=== PATIENT | female | born 1990 | race Caucasian/White ===

== ENCOUNTER 2019-07-02 14:41 | Emergency (ER) | payer SELFPAY ==
[~2019-07-02] VITALS: Ht 156.2 cm; Wt 75.0 kg
[~2019-07-02 14:41] MED LIST: PREN-385 PO; [UNRECOGNIZED DRUG - CODE] PO
[2019-07-02 14:52] VITALS: BP 122/89
--- NOTE | 2019-07-02 15:03 | NUR ---
29 Y/O F C/C COUGH X2 DAYS; FEVER X1 DAY. PER PT NOT UP TO DATE WITH FLU SHOT; NO ONE SICK AT HOME. ALLERGIES SHELLFISH. HAS TAKEN OTC MEDICATIONS WITH NO RELIEF. PT NKA. HX ASTHMA. RX ALBUTEROL PRN. NO N/V/D. PER PT NOTICED COUGHING BLOOD THIS AM. SIDE RAIL X1. FAMILY AT BEDSIDE.
--- NOTE | 2019-07-02 15:08 | NUR ---
Ricarda STEPHENSON AT BEDSIDE
[2019-07-02 15:25] VITALS: BP 122/89
--- NOTE | 2019-07-02 15:25 | NUR ---
Patient discharged with v/s stable. Written and verbal after care instructions given and explained. Patient alert, oriented and verbalized understanding of instructions. Ambulatory with steady gait. All questions addressed prior to discharge. ID band removed. Patient advised to follow up with PMD. Rx of IBUPROFEN, TESSALON, VENTOLIN given. Patient educated on indication of medication including possible reaction and side effects. Opportunity to ask questions provided and answered.
== END 2019-07-02 15:25 | disposition home or self-care (01) ==
LOC: MED 14:41
DX: J06.9 Acute upper respiratory infection, unspecified (principal); R03.0 Elevated blood-pressure reading, without diagnosis of hypertension; J45.909 Unspecified asthma, uncomplicated; Z79.899 Other long term (current) drug therapy; Z91.013 Allergy to seafood
CPT/HCPCS: 99283

== ENCOUNTER 2019-12-18 12:44 | Emergency (ER) | payer MEDICAID ==
[~2019-12-18] VITALS: Ht 157.5 cm; Wt 82.1 kg
[2019-12-18 12:50] VITALS: BP 137/86
[2019-12-18 13:29] VITALS: BP 128/81
== END 2019-12-18 13:30 | disposition home or self-care (01) ==
LOC: MED 12:44
DX: M79.602 Pain in left arm (principal); R20.0 Anesthesia of skin; F17.200 Nicotine dependence, unspecified, uncomplicated; F12.90 Cannabis use, unspecified, uncomplicated; J45.909 Unspecified asthma, uncomplicated; Z79.899 Other long term (current) drug therapy; Z98.890 Other specified postprocedural states; Z91.013 Allergy to seafood
CPT/HCPCS: 99283

== ENCOUNTER 2020-06-22 08:52 | Emergency (ER) | payer MEDICAID ==
[~2020-06-22] VITALS: Ht 157.5 cm; Wt 76.2 kg
[2020-06-22 08:59] VITALS: BP 142/88
--- NOTE | 2020-06-22 09:35 | NUR ---
OBTAINED CONSENT FOR TDAP
--- NOTE | 2020-06-22 09:44 | NUR ---
DR. TORRES EXAMINING PT
[2020-06-22] MEDS ORDERED: LIDOCAINE MPF 1% 10 MG/ML VIAL INJ ONE (09:55)
--- NOTE | 2020-06-22 10:30 | NUR ---
PATIENT AMBULATED TO ER [facility]
--- NOTE | 2020-06-22 10:37 | NUR ---
YANET TORRES REPAIRING LAC
[2020-06-22 10:46] VITALS: BP 142/88
--- NOTE | 2020-06-22 10:46 | NUR ---
Patient discharged with v/s stable. Written and verbal after care instructions given and explained. Patient verbalized understanding. Ambulatory with steady gait. All questions addressed prior to discharge. Advised to follow up with PMD.
== END 2020-06-22 10:46 | disposition home or self-care (01) ==
LOC: MED 08:52
DX: S61.512A Laceration without foreign body of left wrist, initial encounter (principal); J45.909 Unspecified asthma, uncomplicated; Z91.013 Allergy to seafood; Z79.899 Other long term (current) drug therapy; W27.2XXA Contact with scissors, initial encounter; Y93.89 Activity, other specified; Y92.89 Other specified places as the place of occurrence of the external cause; Y99.8 Other external cause status
CPT/HCPCS: 12001; 90471; 90715; 99283; J2001

== ENCOUNTER 2020-07-01 18:07 | Emergency (ER) | payer MEDICAID ==
[~2020-07-01] VITALS: Ht 157.5 cm; Wt 76.2 kg
[2020-07-01 18:10] VITALS: BP 132/72
--- NOTE | 2020-07-01 18:10 | NUR ---
PT FOLLOWING UP TO HAVE STITCHES REMOVED THAT WERE PLACED ON 06/22 TO LEFT WRIST. REDNESS AND SWELLING NOTED TO SITE, PATIENT STATED THE SWELLING DEVELOPED A FEW DAYS AGO. DENIES ANY DRAINAGE. NO PMH
[2020-07-01] MEDS: BACITRACIN OINT 500 UNITS/GM PKT TP ONE (18:32)
--- NOTE | 2020-07-01 18:34 | NUR ---
Patient discharged with v/s stable. Written and verbal after care instructions given and explained. Patient alert, oriented and verbalized understanding of instructions. Ambulatory with steady gait. All questions addressed prior to discharge. ID band removed. Patient advised to follow up with PMD. Rx of MUPIROCIN given. Patient educated on indication of medication including possible reaction and side effects. Opportunity to ask questions provided and answered.
== END 2020-07-01 18:34 | disposition home or self-care (01) ==
LOC: MED 18:07
DX: S61.512D Laceration without foreign body of left wrist, subsequent encounter (principal); J45.909 Unspecified asthma, uncomplicated; Z79.899 Other long term (current) drug therapy; Z91.013 Allergy to seafood; X58.XXXD Exposure to other specified factors, subsequent encounter
CPT/HCPCS: 99282

== ENCOUNTER 2021-08-17 20:39 | Emergency (ER) | payer MEDICAID ==
[~2021-08-17] VITALS: Ht 157.5 cm; Wt 79.4 kg
[2021-08-17 20:45] VITALS: BP 147/82
--- NOTE | 2021-08-17 20:45 | NUR ---
TO BED AMBULATORY
--- NOTE | 2021-08-17 21:10 | NUR ---
Dr. Constantino examining patient.
[2021-08-17] MEDS ORDERED: CIPR500T4 PO (21:19)
[2021-08-17] MEDS ORDERED: IBUP-2213 PO (21:19)
--- NOTE | 2021-08-17 21:21 | NUR ---
31 Y/O FEMALE BIB SELF, C/O LEFT ANT FLANK PAIN X1 HR. PATIENT PRESENTS TO ED WITH PAIN. PT STATES PALPATION TO AREA CAUSES WHAT FEELS LIKE "A SHOCK." PT DESCRIBES PAIN INTERMITTENT, SHARP, WORSE WITH PALPATION AND 7/10 PAIN. DENIES N/V/D; NO DYSURIA OR HEMATURIA, SKIN IS PINK/WARM/DRY; AAOX4 WITH EVEN AND STEADY GAIT; LUNGS CLEAR BL; HR EVEN AND REGULAR; PT DENIES ANY FEVER, CP, SOB, OR COUGH AT THIS TIME; PATIENT STATES PAIN OF 7/10 AT THIS TIME; VSS; PATIENT POSITIONED FOR COMFORT; HOB ELEVATED; BEDRAILS UP X2; BED DOWN. ER MD MADE AWARE OF PT STATUS. NO PMH ALLERGIES TO SHELLFISH DENIES MEDS PREVIOUS SURG TO RIGHT ARMPIT TO REMOVE EXCESS BREAST TISSUE
--- NOTE | 2021-08-17 21:50 | NUR ---
Patient discharged with v/s stable. Written and verbal after care instructions given and explained. Patient alert, oriented and verbalized understanding of instructions. Ambulatory with steady gait. All questions addressed prior to discharge. ID band removed. Patient advised to follow up with PMD. Rx of Ciprofloxacin HCL and Ibuprofen given. Patient educated on indication of medication including possible reaction and side effects. Opportunity to ask questions provided and answered. VSS, A/OX4, AMBULATORY, UNLABORED BREATHING, AND CALM DEMEANOR.
[2021-08-17 21:51] VITALS: BP 147/82
== END 2021-08-17 21:50 | disposition home or self-care (01) ==
LOC: MED 20:39
DX: N39.0 Urinary tract infection, site not specified (principal); J45.909 Unspecified asthma, uncomplicated; Z79.1 Long term (current) use of non-steroidal anti-inflammatories (NSAID); Z79.2 Long term (current) use of antibiotics; Z79.899 Other long term (current) drug therapy; Z91.013 Allergy to seafood
CPT/HCPCS: 81002; 81025; 99283

== ENCOUNTER 2023-04-01 11:00 | Emergency (ER) | payer MEDICAID ==
[~2023-04-01] VITALS: Ht 157.5 cm; Wt 75.3 kg
[~2023-04-01 11:00] MED LIST changes: +CIPR500T4 PO; +IBUP-2213 PO
[2023-04-01 11:07] VITALS: BP 123/84; PULSE 99; RESP 14; TEMP 98.1; O2SAT 97
[2023-04-01] MEDS ORDERED: KETOROLAC 30 MG/ML VIAL IVP ONE (11:35)
[2023-04-01 11:37] VITALS: O2SAT 97
[2023-04-01] MEDS ORDERED: NACL 0.9% 1,000 ML IV ONE (11:45)
[2023-04-01 11:59] LABS: BASOPHILS # (AUTO) 0.1 K/uL (0.00-0.22); BASOPHILS % (AUTO) 0.9 % (0.0-2.0); EOSINOPHILS # (AUTO) 0.3 K/uL (0-0.4); EOSINOPHILS % (AUTO) 4.8 % (0.0-4.0); HEMATOCRIT 43.5 % (36-48); HEMOGLOBIN 14.8 g/dL (12.0-16.0); LYMPHOCYTES # (AUTO) 1.5 K/uL (2.5-16.5); LYMPHOCYTES % (AUTO) 21.1 % (20.5-51.1); MEAN CORPUSCULAR HEMOGLOBIN 31 pg (27-31); MEAN CORPUSCULAR HGB CONC 34 g/dL (33-37); MEAN CORPUSCULAR VOLUME 89.6 fL (80-94); MONOCYTES # (AUTO) 0.4 K/uL (0.8-1.0); MONOCYTES % (AUTO) 6.2 % (1.7-9.3); NEUTROPHILS # (AUTO) 4.8 K/uL (1.8-7.7); PLATELET COUNT (AUTO) 295 K/uL (140-450); RED BLOOD CELL COUNT(AUTO) 4.86 MIL/uL (4.20-5.40); RED CELL DISTRIBUTION WIDTH 12.7 % (11.6-13.7); WHITE BLOOD COUNT (AUTO) 7.2 K/uL (4.8-10.8)
[2023-04-01 12:29] LABS: APPEARANCE,URINE CLEAR (CLEAR); BILIRUBIN,URINE NEGATIVE (NEGATIVE); BLOOD, URINE TRACE-I (NEGATIVE); COLOR,URINE YELLOW (YELLOW); LEUKOCYTE ESTERASE ,URINE NEGATIVE (NEGATIVE); NITRITE, URINE NEGATIVE (NEGATIVE); PROTEIN,URINE NEGATIVE (NEGATIVE); UGLUCOSE NEGATIVE (NEGATIVE); UROBILINOGEN,URINE 0.2 EU/dL (0.2 - 1)
[2023-04-01 12:39] LABS: ANION GAP 13.8 (8-16); CALCIUM 9.1 mg/dL (8.5-10.1); CARBON DIOXIDE 24.8 mmol/L (21-32); CREATININE 0.8 mg/dL (0.6-1.3); POTASSIUM 3.6 mmol/L (3.5-5.1); TOTAL BILIRUBIN 0.7 mg/dL (0.0-1.0)
[2023-04-01 13:34] LABS: RBC,URINE 0-5 /HPF (0-5); WBC,URINE 0-5 /HPF (0-5)
[2023-04-01 13:35] LABS: BACTERIA,URINE FEW /HPF (None Seen); MUCUS,URINE None Seen /LPF (None Seen); SQUAMOUS EPITHELIAL CELL,UR 4-10 (MOD) /LPF (0-3 (FEW)); TRICHOMONAS,URINE None Seen /HPF (None Seen); WHITE BLOOD CELL CASTS,URINE None Seen /LPF (None Seen); YEAST,URINE None Seen /HPF (None Seen)
== END 2023-04-01 14:29 | disposition home or self-care (01) ==
LOC: MED 11:00
DX: N83.202 Unspecified ovarian cyst, left side (principal); J45.909 Unspecified asthma, uncomplicated; Z79.899 Other long term (current) drug therapy; Z79.1 Long term (current) use of non-steroidal anti-inflammatories (NSAID); Z79.2 Long term (current) use of antibiotics; Z91.013 Allergy to seafood
CPT/HCPCS: 36415; 74176; 80053; 81001; 81025; 83690; 85025; 96361; 96374; 99285; J1885; J7030

== ENCOUNTER 2023-04-15 19:55 | Emergency (ER) | payer MEDICAID ==
[~2023-04-15] VITALS: Ht 157.5 cm; Wt 72.1 kg
[2023-04-15 20:59] VITALS: BP 137/93; PULSE 104; RESP 16; TEMP 97.1; O2SAT 99
[2023-04-15 21:59] LABS: APPEARANCE,URINE CLEAR (CLEAR); BILIRUBIN,URINE 1+ (NEGATIVE); BLOOD, URINE NEGATIVE (NEGATIVE); COLOR,URINE YELLOW (YELLOW); LEUKOCYTE ESTERASE ,URINE NEGATIVE (NEGATIVE); NITRITE, URINE NEGATIVE (NEGATIVE); PROTEIN,URINE NEGATIVE (NEGATIVE); UGLUCOSE NEGATIVE (NEGATIVE)
[2023-04-15 22:05] LABS: BASOPHILS # (AUTO) 0.1 K/uL (0.00-0.22); BASOPHILS % (AUTO) 0.8 % (0.0-2.0); EOSINOPHILS # (AUTO) 0.3 K/uL (0-0.4); EOSINOPHILS % (AUTO) 3.2 % (0.0-4.0); HEMATOCRIT 41.5 % (36-48); HEMOGLOBIN 14.1 g/dL (12.0-16.0); LYMPHOCYTES % (AUTO) 24.3 % (20.5-51.1); MEAN CORPUSCULAR HEMOGLOBIN 31 pg (27-31); MEAN CORPUSCULAR HGB CONC 34 g/dL (33-37); MEAN CORPUSCULAR VOLUME 89.6 fL (80-94); MONOCYTES # (AUTO) 0.8 K/uL (0.8-1.0); MONOCYTES % (AUTO) 9.3 % (1.7-9.3); NEUTROPHILS # (AUTO) 5.1 K/uL (1.8-7.7); NEUTROPHILS % (AUTO) 62.4 % (42.2-75.2); PLATELET COUNT (AUTO) 333 K/uL (140-450); RED BLOOD CELL COUNT(AUTO) 4.63 MIL/uL (4.20-5.40); RED CELL DISTRIBUTION WIDTH 12.7 % (11.6-13.7); WHITE BLOOD COUNT (AUTO) 8.2 K/uL (4.8-10.8)
[2023-04-15 22:11] LABS: ICTOTEST NEGATIVE (NEGATIVE)
[2023-04-15 22:43] LABS: ALBUMIN 3.7 g/dL (3.4-5.0); ANION GAP 11.1 (8-16); CALCIUM 8.9 mg/dL (8.5-10.1); CARBON DIOXIDE 27.4 mmol/L (21-32); CREATININE 0.8 mg/dL (0.6-1.3); POTASSIUM 3.5 mmol/L (3.5-5.1); TOTAL BILIRUBIN 0.4 mg/dL (0.0-1.0); TOTAL PROTEIN, SERUM 7.7 g/dL (6.4-8.2)
[2023-04-15 23:03] VITALS: BP 128/74; PULSE 87; RESP 16; TEMP 97; O2SAT 99
== END 2023-04-15 23:04 | disposition home or self-care (01) ==
LOC: MED 19:55
DX: N64.4 Mastodynia (principal); M54.9 Dorsalgia, unspecified; J45.909 Unspecified asthma, uncomplicated; Z98.890 Other specified postprocedural states; Z79.899 Other long term (current) drug therapy; Z91.013 Allergy to seafood
CPT/HCPCS: 36415; 71045; 80053; 81003; 81025; 83690; 85025; 99284

== ENCOUNTER 2023-05-21 14:01 | Emergency (ER) | payer MEDICAID ==
[~2023-05-21] VITALS: Ht 157.5 cm; Wt 79.4 kg
[2023-05-21 14:08] VITALS: BP 137/86; PULSE 92; RESP 15; TEMP 97.9; O2SAT 99
[2023-05-21 14:10] VITALS: O2SAT 99
[2023-05-21] MEDS ORDERED: diphenhydrAMINE 50 MG/ML VIAL IVP ONE ×2 (15:05→16:50)
[2023-05-21] MEDS ORDERED: METOCLOPRAMIDE 10 MG/2 ML INJ VIAL IVP ONE ×2 (15:05→16:50)
[2023-05-21] MEDS ORDERED: KETOROLAC 30 MG/ML VIAL IVP ONE (15:05)
[2023-05-21] MEDS ORDERED: NACL 0.9% 1,000 ML IV ONE ×2 (15:05→16:50)
[2023-05-21] MEDS ORDERED: KETOROLAC 30 MG/ML VIAL IM ONE (15:15)
== END 2023-05-21 17:58 | disposition home or self-care (01) ==
LOC: MED 14:01
DX: R51.9 Headache, unspecified (principal); J45.909 Unspecified asthma, uncomplicated; Z79.899 Other long term (current) drug therapy; Z79.2 Long term (current) use of antibiotics; Z79.1 Long term (current) use of non-steroidal anti-inflammatories (NSAID); Z91.013 Allergy to seafood
CPT/HCPCS: 70450; 81002; 81025; 96361; 96372; 96374; 96375; 99285; J1200; J1885; J2765; J7030